=== PATIENT | female | born 1995 | race African-American/Black ===

== ENCOUNTER 2023-04-20 06:32 | Emergency (ER) | payer SELFPAY ==
[2023-04-20 06:43] VITALS: BP 146/90; PULSE 82; RESP 18; TEMP 98.3; BMI 22.8
[2023-04-20 09:28] LABS: EOS % 3.1 % (0-4.5); HEMOGLOBIN 11.2 GM/dL (10.7-15.3); LYMPH % 30.5 % (8-40); MCH 29.5 pg (25.7-33.7); MCHC 32.1 g/dl (32.0-36.0); MEAN PLT VOLUME 9.3 fl (7.5-11.1); MONO % 6.9 % (3.8-10.2); NEUT % 58.5 % (42.8-82.8); PLATELET COUNT 341 10^3/uL (134-434); RDW 14.5 % (11.6-15.6); WHITE BLOOD COUNT 4.7 K/mm3 (4.0-10.0)
[2023-04-20 09:49] LABS: ALBUMIN 4.1 g/dl (3.4-5.0); BLOOD UREA NITROGEN 7.3 mg/dL (7-18); CALCIUM 8.6 mg/dL (8.5-10.1)
[2023-04-20 09:50] LABS: MAGNESIUM 2.2 mg/dL (1.8-2.4)
[2023-04-20 09:52] LABS: CREATININE 0.9 mg/dL (0.55-1.3)
[2023-04-20 09:54] LABS: BILIRUBIN,TOTAL 0.9 mg/dL (0.2-1); TOT PROT 7.9 g/dl (6.4-8.2)
== END 2023-04-20 10:11 | disposition home or self-care (01) ==
LOC: JER 06:32
DX: R03.0 Elevated blood-pressure reading, without diagnosis of hypertension (principal)
CPT/HCPCS: 36415; 80053; 83735; 84443; 85025; 99283-25